=== PATIENT | male | born 1980 ===

== ENCOUNTER 2023-08-08 09:01 | Outpatient (RCR) | payer BC, SELFPAY | END 2023-08-22 08:28 | disposition home or self-care (01) | LOC: RPT 09:01 | PROVIDERS: ATTENDING PHYSICIAN Surgery; PRIMARYCARE PHYSICIAN Student in an Organized Health Care Education/Training Program | DX: M54.51 Vertebrogenic low back pain (principal); Z73.6 Limitation of activities due to disability; M51.36 Other intervertebral disc degeneration, lumbar region | CPT/HCPCS: 97010; 97110; 97112 ==

== ENCOUNTER → 2024-08-20 13:43 | Outpatient (REF) | payer BC, SELFPAY | LOC: CLAB 13:43 | PROVIDERS: ATTENDING PHYSICIAN Urology | DX: Z30.2 Encounter for sterilization (principal) | CPT/HCPCS: 88302 ==

== ENCOUNTER → 2025-07-30 06:37 | Outpatient (REF) | payer BC, SELFPAY | LOC: MRI 3T 06:37 | PROVIDERS: ATTENDING PHYSICIAN Student in an Organized Health Care Education/Training Program; FAMILY PHYSICIAN Internal Medicine | DX: M51.26 Other intervertebral disc displacement, lumbar region (principal) | CPT/HCPCS: 72148 ==